=== PATIENT | male | born 1990 | race Caucasian/White ===

== ENCOUNTER 2018-09-14 18:57 | Emergency (ER) | payer SELFPAY ==
[2018-09-14 19:23] LABS: Bacteria/HPF None Seen HPF (None Seen); Bilirubin Negative (Negative); Blood, Urine 1+ (Negative); Clarity Turbid (Clear); Glucose, Urine (Dipstick) Normal (Negative); Leukocyte 500 Leu/uL (Negative); Nitrite Negative (Negative); Protein, Urine (Dipstick) 50 mg/dL (Neg-Trace); Squamous Epithelial None Seen HPF (0-3); Urobilinogen 3 mg/dL (Less than 2); WBC/HPF Greater than 50 HPF (0-3)
[2018-09-14] MEDS ORDERED: Lidocaine 1% PF 5 ML VIAL ONE (19:38)
[2018-09-14] MEDS ORDERED: Azithromycin 250 MG TAB ONE (19:38)
[2018-09-14] MEDS ORDERED: cefTRIAXone\\ROCEPHIN 250 MG VIAL ONE (19:38)
[2018-09-14] MEDS ORDERED: Naproxen 500 MG TAB ONE (19:39)
[2018-09-15 23:09] LABS: Chlam.trachomatis by PCR,Urine Inconclusive (NotDetected)
== END 2018-09-14 20:08 | disposition home or self-care (01) ==
LOC: ERS 18:57
DX: R30.0 Dysuria (principal); R36.9 Urethral discharge, unspecified; M79.642 Pain in left hand; F41.9 Anxiety disorder, unspecified; F17.210 Nicotine dependence, cigarettes, uncomplicated
CPT/HCPCS: 81003; 81015; 87086; 87491; 87591; 96372; 99283; J0696; J2001